=== PATIENT | female | born 1990 | race Caucasian/White ===

== ENCOUNTER 2019-03-16 13:50 | Observation (INO) | payer OTHER, SELFPAY ==
[2019-03-16 14:10] VITALS: BMI 29.8
[2019-03-16] MEDS: TERBUTALINE SULFATE 1 MG/ML VIAL 0.25 MG SUB-Q (14:26)
[2019-03-16 15:51] VITALS: PULSE 86; O2SAT 100
[2019-03-16 15:56] VITALS: PULSE 85; O2SAT 100
[2019-03-16 16:01] VITALS: PULSE 91; O2SAT 99
[2019-03-16 16:06] VITALS: PULSE 86; O2SAT 100
[2019-03-16 16:09] VITALS: PULSE 87; O2SAT 100
[2019-03-16 16:24] LABS: Add Urine Microscopic? YES; Amorphous Sediment Urine Few; Appearance Urine Cloudy (Clear); Bacteria Urine 4+ /hpf; Bilirubin Urine Negative (Negative); Blood Urine Negative (Negative); Color Urine Straw (Yellow); Glucose Urine UA Negative (Negative); Ketones Urine Negative (Negative); Leukocyte Esterase Ur Negative LEU/UL (Negative); Mucus Urine Rare /lpf; Nitrate Urine Negative (Negative); Protein Urine Negative (Negative); RBC Urine 0-2 /hpf (0-2); Specific Grav Ur 1.009 (1.001-1.035); Squamous Epithelial Cell Urine Occasional /hpf (Few); Urobilinogen Urine Negative mg/dL (<2.0); WBC Urine 0-3 /hpf
[2019-03-16 16:26] LABS: Fetal Fibronectin Negative
--- NOTE | 2019-03-16 16:32 | OBADM ---
This patient, Tawnya Reyes, admitted to the OB room OB Post 115 for observation. Patient/family oriented to hospital policies and general routines including ID bracelet, bed and alarms, visiting hours, pain management, procedures, bathroom and other care routines, personal items, smoking policy, room service/diet, and visiting hours. Patient/Family are encouraged to report perceived risks to care and to ask questions if they do not understand what they are told or what they should do.
[2019-03-16] MEDS: NITROFURANTOIN MONOHYD MACROCR 100 MG CAP PO (17:15)
--- NOTE | 2019-03-20 13:06 | PM.OBTRLD ---
OB - Triage/Final Diagnosis Visit Information Reason for evaluation: threatened labor Evaluation Laboratory results: Laboratory Tests 03/16/19 03/16/19 14:30 15:56 Urine Color Straw Urine Appearance Cloudy H Urine pH 7.0 Ur Specific [place] 1.009 Urine Protein Negative Urine Glucose (UA) Negative Urine Ketones Negative Ur Blood (Man) Negative Urine Nitrate Negative Urine Bilirubin Negative Urine Urobilinogen Negative Leukocyte Esterase Rfl Negative Urine RBC 0-2 Urine WBC 0-3 Ur Squamous Epith Cells Occasional Amorphous Sediment Few H Urine Bacteria 4+ H Urine Mucus Rare Fibronectin Negative
--- NOTE | 2019-03-21 06:44 | P.PNOB_ITS ---
OB - Triage/Final Diagnosis Visit Information Date of evaluation: 03/19/19 Reason for evaluation: decreased movement and threatened labor Evaluation Laboratory results: Laboratory Tests 03/16/19 03/16/19 14:30 15:56 Urine Color Straw Urine Appearance Cloudy H Urine pH 7.0 Ur Specific [place] 1.009 Urine Protein Negative Urine Glucose (UA) Negative Urine Ketones Negative Ur Blood (Man) Negative Urine Nitrate Negative Urine Bilirubin Negative Urine Urobilinogen Negative Leukocyte Esterase Rfl Negative Urine RBC 0-2 Urine WBC 0-3 Ur Squamous Epith Cells Occasional Amorphous Sediment Few H Urine Bacteria 4+ H Urine Mucus Rare Fibronectin Negative
== END 2019-03-16 17:20 | disposition home or self-care (01) ==
PROVIDERS: Admitting Provider Obstetrics & Gynecology; PCP Family Medicine; Visit Provider Obstetrics & Gynecology
DX: O47.02 False labor before 37 completed weeks of gestation, second trimester (principal); O36.8120 Decreased fetal movements, second trimester, not applicable or unspecified; Z3A.26 26 weeks gestation of pregnancy
CPT/HCPCS: 81001; 82731; 96372; A9270; G0378; G0379; J3105

== ENCOUNTER 2019-05-24 10:40 | Outpatient (CLI) | payer OTHER, SELFPAY ==
[2019-05-24 11:10] VITALS: BP 142/88; PULSE 103
[2019-05-24 11:15] VITALS: BP 137/94; PULSE 106
[2019-05-24 11:30] VITALS: BP 142/87; PULSE 102
[2019-05-24 11:58] LABS: Basophils Absolute Auto 0.1 K/mm3 (0.0-0.1); Basophils Percent Auto 0.5 % (0.2-1.2); Eosinophils Absolute Auto 0.4 K/mm3 (0-0.3); Eosinophils Percent Auto 2.4 % (0-4.4); Hematocrit 35.4 % (37.0-47.0); Hemoglobin 11.4 g/dL (12.0-15.0); Immature Granulocyte Absolute 0.17 K/mm3 (0.00-0.031); Immature Granulocyte Percent A 1.1 % (0-0.5); Lymphocytes Absolute Auto 2.61 K/mm3 (0.9-3.2); Lymphocytes Percent Auto 17.2 % (18.3-44.2); Mean Corpuscular HGB Conc 32.2 g/dl (32-36); Mean Corpuscular Hemoglobin 31.7 pg (26-34); Mean Corpuscular Volume 98.3 fl (80-100); Mean Platelet Volume 10.9 fl (7.4-10.4); Monocytes Absolute Auto 1.7 K/mm3 (0.1-0.6); Neutrophils Absolute Auto 10.3 K/mm3 (1.3-6.7); Neutrophils Percent Auto 67.8 % (45.5-73.1); Platelet Count Result 262 k/mm3 (150-375); Red Cell Distribution Width 14.2 % (11.5-14.5); White Blood Count 15.2 K/mm3 (4.5-10.0)
[2019-05-24 12:11] LABS: Alanine Aminotransferase 15 U/L (4-35); Albumin Level 3.4 g/dL (3.5-5.1); Alkaline Phosphatase 142 U/L (38-126); Aspartate Amino Transferase 30 U/L (14-36); Bilirubin,Total 0.2 mg/dL (0.2-1.3); Blood Urea Nitrogen 6 mg/dL (7-17); Calcium 8.2 mg/dL (8.4-10.2); Carbon Dioxide 25 mmol/L (22-30); Chloride 103 mmol/L (98-107); Estimated Glomerular Filt Rate > 60; Glucose 104 mg/dL (65-105); Potassium 3.9 mmol/L (3.4-5.0); Sodium 134 mmol/L (137-145); Uric Acid 3.6 mg/dL (2.5-7.5)
[2019-05-24 12:11] LABS: Add Urine Microscopic? YES; Appearance Urine Cloudy (Clear); Bacteria Urine 1+ /hpf; Bilirubin Urine Negative (Negative); Blood Urine Negative (Negative); Color Urine Yellow (Yellow); Glucose Urine UA Negative (Negative); Ketones Urine Negative (Negative); Leukocyte Esterase Ur Negative LEU/UL (NEGATIVE); Mucus Urine Rare /lpf; Nitrate Urine Negative (Negative); Protein Urine Negative (Negative); RBC Urine 0-2 /hpf (0-2); Squamous Epithelial Cell Urine Occasional /hpf (Few); Urobilinogen Urine Negative mg/dL (<2.0)
[2019-05-24 12:13] LABS: Creatinine Urine 32.3 mg/dL; Total Protein Urine Random 13 mg/dL
[2019-05-24 12:41] VITALS: BP 142/88; PULSE 113
[2019-05-24 13:38] VITALS: BP 142/88; PULSE 113
--- NOTE | 2019-05-24 13:41 | PC.NURSE ---
1124-Dr.Dalla Lee called informed pt came in for increased swelling in hands and feet, pt states she had right upper epigastric pain earlier and has had some headaches but has no complaints now. Orders receive for PIH workup
--- NOTE | 2019-05-24 13:43 | PC.NURSE ---
1229-Dr.Dalla Lee called read lab results and bp's, discharge orders received
--- NOTE | 2019-05-24 14:28 | PM.OBTRLD ---
OB - Triage/Final Diagnosis Visit Information Date of evaluation: 05/24/19 Reason for evaluation: other (htn) Evaluation Laboratory results: Laboratory Tests 05/24/19 05/24/19 05/24/19 11:43 11:43 11:48 WBC 15.2 H RBC 3.60 L Hgb 11.4 L Hct 35.4 L MCV 98.3 MCH 31.7 MCHC 32.2 RDW 14.2 Plt Count 262 MPV 10.9 H Immature Gran % (Auto) 1.1 H Neut % (Auto) 67.8 Lymph % (Auto) 17.2 L [place] % (Auto) 11.0 H Eos % (Auto) 2.4 Baso % (Auto) 0.5 Lymph # (Auto) 2.61 [place] # (Auto) 1.7 H Eos # (Auto) 0.4 H Baso # (Auto) 0.1 Abs Immat Gran (auto) 0.17 H Absolute Neuts (auto) 10.3 H Absolute Nucleated RBC 0.0 Nucleated RBC % 0.0 Sodium 134 L Potassium 3.9 Chloride 103 Carbon Dioxide 25 BUN 6 L Creatinine 0.40 L Estim Creat Clear Calc Not Reportable Estimated GFR > 60 Glucose 104 Uric Acid 3.6 Calcium 8.2 L Total Bilirubin 0.2 AST 30 ALT 15 Alkaline Phosphatase 142 H Total Protein 7.0 Albumin 3.4 L Urine Color Yellow Urine Appearance Cloudy H Urine pH 7.0 Ur Specific [place] 1.010 Urine Protein Negative Urine Glucose (UA) Negative Urine Ketones Negative Ur Blood (Man) Negative Urine Nitrate Negative Urine Bilirubin Negative Urine Urobilinogen Negative Ur Leukocyte Esterase Negative Urine RBC 0-2 Urine WBC 4-6 H Ur Squamous Epith Cells Occasional Urine Bacteria 1+ H Urine Mucus Rare U Random Total Protein Urine Creatinine 05/24/19 11:48 WBC RBC Hgb Hct MCV MCH MCHC RDW Plt Count MPV Immature Gran % (Auto) Neut % (Auto) Lymph % (Auto) [place] % (Auto) Eos % (Auto) Baso % (Auto) Lymph # (Auto) [place] # (Auto) Eos # (Auto) Baso # (Auto) Abs Immat Gran (auto) Absolute Neuts (auto) Absolute Nucleated RBC Nucleated RBC % Sodium Potassium Chloride Carbon Dioxide BUN Creatinine Estim Creat Clear Calc Estimated GFR Glucose Uric Acid Calcium Total Bilirubin AST ALT Alkaline Phosphatase Total Protein Albumin Urine Color Urine Appearance Urine pH Ur Specific [place] Urine Protein Urine Glucose (UA) Urine Ketones Ur Blood (Man) Urine Nitrate Urine Bilirubin Urine Urobilinogen Ur Leukocyte Esterase Urine RBC Urine WBC Ur Squamous Epith Cells Urine Bacteria Urine Mucus U Random Total Protein 13 Urine Creatinine 32.3 Vital signs: Vital Signs - 24 hr 05/24/19 11:10 05/24/19 11:15 05/24/19 11:30 Pulse Rate 103 H 106 H 102 H Blood Pressure 142/88 H 137/94 H 142/87 H Blood Pressure [Right Arm] 05/24/19 12:41 05/24/19 13:38 Pulse Rate 113 H 113 H Blood Pressure Blood Pressure [Right Arm] 142/88 H 142/88 H
== END 2019-05-24 12:50 | disposition home or self-care (01) ==
LOC: ANHOBPP 12:38 → ANHOBOP 05-25 06:53 → ANHOBPP 05-25 06:54
PROVIDERS: PCP Family Medicine; Visit Provider Obstetrics & Gynecology
DX: M79.89 Other specified soft tissue disorders (principal)
CPT/HCPCS: 36415; 59025; 80053; 81001; 82570; 84156; 84550; 85025; 87086; 87088; 99199

== ENCOUNTER 2019-05-29 12:02 | Outpatient (CLI) | payer OTHER, SELFPAY ==
[2019-05-29 12:33] VITALS: BP 130/96; PULSE 106
[2019-05-29 12:35] VITALS: BP 130/96; PULSE 114
[2019-05-29 12:45] VITALS: BP 134/96; PULSE 105
[2019-05-29 12:50] LABS: Basophils Absolute Auto 0.1 K/mm3 (0.0-0.1); Basophils Percent Auto 0.6 % (0.2-1.2); Eosinophils Absolute Auto 0.4 K/mm3 (0-0.3); Hematocrit 36.7 % (37.0-47.0); Hemoglobin 11.9 g/dL (12.0-15.0); Immature Granulocyte Absolute 0.11 K/mm3 (0.00-0.031); Immature Granulocyte Percent A 0.8 % (0-0.5); Lymphocytes Absolute Auto 2.99 K/mm3 (0.9-3.2); Lymphocytes Percent Auto 21.5 % (18.3-44.2); Mean Corpuscular HGB Conc 32.4 g/dl (32-36); Mean Corpuscular Hemoglobin 31.3 pg (26-34); Mean Corpuscular Volume 96.6 fl (80-100); Mean Platelet Volume 10.3 fl (7.4-10.4); Monocytes Absolute Auto 1.5 K/mm3 (0.1-0.6); Monocytes Percent Auto 10.5 % (2.6-8.5); Neutrophils Absolute Auto 8.8 K/mm3 (1.3-6.7); Neutrophils Percent Auto 63.6 % (45.5-73.1); Platelet Count Result 265 k/mm3 (150-375); Red Cell Distribution Width 13.7 % (11.5-14.5); White Blood Count 13.9 K/mm3 (4.5-10.0)
[2019-05-29 12:53] LABS: Add Urine Microscopic? NO; Appearance Urine Clear (Clear); Bilirubin Urine Negative (Negative); Blood Urine Negative (Negative); Color Urine Straw (Yellow); Glucose Urine UA Negative (Negative); Ketones Urine Negative (Negative); Leukocyte Esterase Ur Negative LEU/UL (Negative); Nitrate Urine Negative (Negative); Protein Urine Negative (Negative); Specific Grav Ur 1.005 (1.001-1.035); Urobilinogen Urine Negative mg/dL (<2.0)
[2019-05-29 13:00] VITALS: BP 133/85; PULSE 107
[2019-05-29 13:06] LABS: Alanine Aminotransferase 14 U/L (4-35); Albumin Level 3.6 g/dL (3.5-5.1); Alkaline Phosphatase 173 U/L (38-126); Aspartate Amino Transferase 31 U/L (14-36); Bilirubin,Total 0.3 mg/dL (0.2-1.3); Blood Urea Nitrogen 4 mg/dL (7-17); Calcium 8.8 mg/dL (8.4-10.2); Carbon Dioxide 25 mmol/L (22-30); Chloride 103 mmol/L (98-107); Estimated Glomerular Filt Rate > 60; Glucose 73 mg/dL (65-105); Sodium 134 mmol/L (137-145)
[2019-05-29 13:15] VITALS: BP 131/96; PULSE 105
[2019-05-29 13:20] LABS: Creatinine Urine 13.2 mg/dL; Total Protein Urine Random 14 mg/dL
[2019-05-29 13:22] VITALS: BP 131/96; PULSE 103
--- NOTE | 2019-05-29 13:25 | PM.OBTRLD ---
OB - Triage/Final Diagnosis Visit Information Date of evaluation: 05/29/19 Reason for evaluation: other (htn) Evaluation Laboratory results: Laboratory Tests 05/29/19 05/29/19 05/29/19 12:40 12:41 12:41 WBC 13.9 H RBC 3.80 L Hgb 11.9 L Hct 36.7 L MCV 96.6 MCH 31.3 MCHC 32.4 RDW 13.7 Plt Count 265 MPV 10.3 Immature Gran % (Auto) 0.8 H Neut % (Auto) 63.6 Lymph % (Auto) 21.5 [place] % (Auto) 10.5 H Eos % (Auto) 3.0 Baso % (Auto) 0.6 Lymph # (Auto) 2.99 [place] # (Auto) 1.5 H Eos # (Auto) 0.4 H Baso # (Auto) 0.1 Abs Immat Gran (auto) 0.11 H Absolute Neuts (auto) 8.8 H Absolute Nucleated RBC 0.0 Nucleated RBC % 0.0 Sodium 134 L Potassium 4.0 Chloride 103 Carbon Dioxide 25 BUN 4 L Creatinine 0.40 L Estim Creat Clear Calc Not Reportable Estimated GFR > 60 Glucose 73 Uric Acid 4.0 Calcium 8.8 Total Bilirubin 0.3 AST 31 ALT 14 Alkaline Phosphatase 173 H Total Protein 7.0 Albumin 3.6 Urine Color Urine Appearance Urine pH Ur Specific [place] Urine Protein Urine Glucose (UA) Urine Ketones Ur Blood (Man) Urine Nitrate Urine Bilirubin Urine Urobilinogen Leukocyte Esterase Rfl U Random Total Protein 14 Urine Creatinine 13.2 05/29/19 12:41 WBC RBC Hgb Hct MCV MCH MCHC RDW Plt Count MPV Immature Gran % (Auto) Neut % (Auto) Lymph % (Auto) [place] % (Auto) Eos % (Auto) Baso % (Auto) Lymph # (Auto) [place] # (Auto) Eos # (Auto) Baso # (Auto) Abs Immat Gran (auto) Absolute Neuts (auto) Absolute Nucleated RBC Nucleated RBC % Sodium Potassium Chloride Carbon Dioxide BUN Creatinine Estim Creat Clear Calc Estimated GFR Glucose Uric Acid Calcium Total Bilirubin AST ALT Alkaline Phosphatase Total Protein Albumin Urine Color Straw Urine Appearance Clear Urine pH 7.0 Ur Specific [place] 1.005 Urine Protein Negative Urine Glucose (UA) Negative Urine Ketones Negative Ur Blood (Man) Negative Urine Nitrate Negative Urine Bilirubin Negative Urine Urobilinogen Negative Leukocyte Esterase Rfl Negative U Random Total Protein Urine Creatinine Vital signs: Vital Signs - 24 hr 05/29/19 12:33 05/29/19 12:35 05/29/19 12:45 Pulse Rate 106 H 114 H 105 H Blood Pressure 130/96 H 134/96 H Blood Pressure [Right Arm] 130/96 H 05/29/19 13:00 05/29/19 13:15 Pulse Rate 107 H 105 H Blood Pressure 133/85 131/96 H Blood Pressure [Right Arm]
[2019-05-30 07:43] LABS: Rapid Plasma Reagin Non-Reactive (NonReactive)
== END 2019-05-29 13:30 | disposition home or self-care (01) ==
LOC: ANHOBOP 12:07 → ANHOBPP 12:08
PROVIDERS: Family Provider Obstetrics & Gynecology; PCP Family Medicine; Visit Provider Obstetrics & Gynecology
DX: O13.9 Gestational [pregnancy-induced] hypertension without significant proteinuria, unspecified trimester (principal)
CPT/HCPCS: 36415; 59025; 80053; 81003; 82570; 84156; 84550; 85025; 86592; 86850; 86900; 86901; 99199

== ENCOUNTER 2019-05-30 05:24 | Inpatient (IN) | payer OTHER, SELFPAY ==
[2019-05-30] VITALS (80 sets, daily range): BP systolic 101–140; BP diastolic 64–98; PULSE 25–113; RESP 12–18; TEMP 36.4–37.1; O2SAT 94–100; BMI 34.9
[2019-05-30] MEDS: LACTATED RINGERS 1,000 ML 999 ML IV CONT (06:19)
--- NOTE | 2019-05-30 06:35 | WPDHPUPDATE1 ---
History and Physical Update Update Date/Time: 05/30/19 06:35 History and Physical has been reviewed, including an updated exam of the patient. There are NO changes in the patient's condition. Risks, benefits, and alternatives have been discussed and questions answered. Patient agrees to proceed with procedure.
--- NOTE | 2019-05-30 06:37 | WPDANESEPPF ---
Anes - Initial Pre Proc Eval Procedure: Operation Date: 05/30/19 07:30 Proposed Procedures p Repeat Section - Melvin Starr MD Date/Time: 05/30/19 06:37 Surgeon: Melvin Starr MD Pre Op Diagnosis: Previous C- Section Patient Data Age: 29 Gender: F Height: 4 ft 11 in Weight: 78.5 kg Last Vital Signs Pulse 113 H 05/30/19 06:31 BP 140/98 H 05/30/19 06:31 Pulse Ox 96 05/30/19 06:18 Allergies Allergy/AdvReac Type Severity Reaction Status Date / Time latex Allergy Mild Verified 04/13/17 15:25 citalopram Allergy Unknown Verified 12/17/14 14:26 Penicillins Allergy Unknown Verified 12/17/14 14:26 vancomycin Allergy Unknown Verified 03/30/18 13:23 Home Medications Medication Instructions Recorded Confirmed Type PNV cmb#95-ferrous fumarate-FA 1 tablet PO DAILY 05/29/19 05/29/19 History [] aspirin 81 mg PO DAILY 05/29/19 05/29/19 History cetirizine [Zyrtec] 10 mg PO DAILY PRN 05/29/19 05/29/19 History ferrous sulfate 325 mg PO DAILY 05/29/19 05/29/19 History hydrocodone-acetaminophen [[place]] 1 tablet PO Q4H PRN #30 tablet 05/30/19 Rx Patient hx anesthesia problems: none Family hx anesthesia problems: none PMFSH Past Medical History Medical History (Updated 05/30/19 @ 06:37 by Melvin Stovall MD) Preeclampsia Surgical History Surgical History (Updated 05/30/19 @ 06:37 by Melvin Stovall MD) History of section Hx of tonsillectomy Family History Family History Father Hypertension Family history of heart disease in male family member before age 55 Grandparent Family history of lung cancer Family history of type 1 diabetes mellitus Social History Social History Smoking status: Never smoker Alcohol intake: current Anes - Eval Final PreProcedure Day of Procedure 05/30/19 06:37 Patient weight: obese Heart: regular rate and rhythm Lungs: clear to auscultation Airway: Mallampati scale class II Neurological: alert and oriented Last oral intake: >/= 8 hours ASA classification: III Emergent: no Anesthetic plan: proceed Anesthesia type and monitoring: regional spinal and standard monitoring Informed Consent: The patient's anesthetic plan and its attendant risks and benefits were discussed with the patient/family/POA. Questions were solicited and answers provided to the satisfaction of the patient/family/POA.
--- NOTE | 2019-05-30 07:00 | LDADM ---
This patient, Tawnya Reyes, was admitted to Labor/Delivery/Recovery 120 on 05/30/19 at 05:24. Plans for labor, pain management and were discussed with patient. Patient/family oriented to hospital policies and general routines including ID bracelet, bed and alarms, visiting hours, pain management, procedures, bathroom and other care routines, personal items, smoking policy, room service/diet and guest tray routines, security routines, and visiting hours. Patient/Family are encouraged to report perceived risks to care and to ask questions if they do not understand what they are told or what they should do. See OBIX for further documentation.
[2019-05-30] MEDS: LACTATED RINGERS 1,000 ML 125 ML IV CONT (07:03)
[2019-05-30] MEDS: CLINDAMYCIN 900 MG/NS 50 ML 900 MG/50 ML PIGGYBACK 50 MG IVPB (07:20)
--- NOTE | 2019-05-30 07:58 | PM.PROC ---
Procedure Note - Detailed Date of procedure: 05/30/19 Pre-op diagnosis: Previous C- Section Surgeon: Melvin Starr MD Postop diagnosis: Previous section, 37 and half weeks , gestational hypertension Procedure: Repeat low-transverse section Anesthesia: Spinal EBL,: 310cc Findings: Female 7 lb 9 oz, Apgars 8 and 9 at 1 and 5 minutes respectively Complications: None Description of procedure: The patient was prepped and draped in the normal sterile fashion and placed in the supine position. Under excellent spinal anesthetic the abdomen was entered through the previous Pfannenstiel incision and progressive layers to the fascia. Fascia was incised and upward outward fashion bilaterally. Underlying muscles sharp dissected. Parietal peritoneum will likely clamped and by sharp dissection carried superiorly and inferiorly to the dome of the bladder. Bladder blade was placed and a bladder blade returned low-transverse incision made and the head delivered in the STANLEY position. Anterior posterior shoulder delivered spontaneously. Cord clamped x2 and cut and passed off the table. Apgars were given of 8 and 9 at 1 and 5 minutes respectively. Placenta delivered intact manually. Uterus delivered on the abdomen wrapped in a moist towel. After assuring no membranes or debris remained in the uterus the uterus was closed with continuous running locking 0 Vicryl from lateral edge to lateral edge. This was followed by 2nd imbricating running 0 Vicryl from lateral edge lateral edge. Hemostasis was assured and blood loss was estimated. Ovaries and tubes inferior appeared within normal limits. The uterine incision was hemostatic. A small calcified fibroid about a cm in size was seen at the fundus. The uterus returned the abdomen. The laps removed and accounted for. The uterine incision inspected 1 last time noted be hemostatic. The fascia was closed with continuous running 0 Vicryl from lateral edge to midline bilaterally. Irrigation the subcutaneous layer and the skin closed with 4 O Monocryl and glue. Patient tolerated the procedure well. All sponge, needle, instrument counts were correct. There were no immediate complications. Mom and baby were doing fine at the time of this dictation
[2019-05-30] MEDS: OXYTOCIN 30 UNITS/NS 500 ML 30 UNITS/500 ML BAG 125 UNITS IV CONT (10:28)
--- NOTE | 2019-05-30 10:35 | PC.NURSE ---
PT arrived on unit via stretcher accompanied by spouse and to room 280. PT introductions made and plan of care discussed per post op c section, pain management, breast feeding, daily care activities. PT oriented to room 280 and surrounding area. Welcome packet reviewed and discussed. PT verbalized understanding of such care.
[2019-05-30] MEDS: KETOROLAC 30 MG/ML VIAL (*BKC) IV PUSH ×2 (11:18→17:58)
[2019-05-30] MEDS: LANOLIN (LANSINOH) 7.5 GM CREAM 1 APPLIC TOPICAL (11:20)
[2019-05-30] MEDS: SIMETHICONE 80 MG TAB.CHEW PO ×3 (11:20→17:56)
--- NOTE | 2019-05-30 14:00 | PC.NURSE ---
Upon entering mother has latched to breast, has a slightly shallow latch. Mother reports infant is fussy and has some nipple tenderness. Discussed how a deep latch may assist with less tenderness and may increase intake. Mother reports she does not like to use the cross cradle and the cradle is more comfortable to her. Reviewed positioning/alignment, holding breast and asymmetrical latch on. Discussed rational for each. nursed eagerly, with steady draws and occasional swallowing noted. Reviewed signs of a correct latch, effective nursing and suck swallow ratio. Nipple care reviewed. Reviewed feeding cues, frequencies, duration of feedings, feeding elimination flow sheet, and signs of adequate intake. Demonstrated stimulation techniques to wake for feeding.Instructed mother to call out for RN assistance if she is unable to latch infant for feeding or she has discomfort with nursing. Instructed feeding should be initiated three hours from start of last feeding or if feeding cues are noted before. Mother voiced understanding of information shared.
[2019-05-30] MEDS: DEXTROSE 5%/0.45% SOD CHL 1,000 ML 125 ML IV CONT (14:56)
[2019-05-30] MEDS: NALBUPHINE HCL 10 MG/ML AMPUL 2 MG IV PUSH ×2 (15:27→19:49)
[2019-05-30] MEDS: DOCUSATE SODIUM 100 MG CAPSULE PO (17:56)
[2019-05-31] MEDS: IBUPROFEN 600 MG TABLET PO ×3 (01:18→16:24)
[2019-05-31] MEDS: SIMETHICONE 80 MG TAB.CHEW PO ×5 (01:26→20:26)
[2019-05-31] MEDS: NALBUPHINE HCL 10 MG/ML AMPUL 2 MG IV PUSH ×2 (01:29→05:20)
[2019-05-31 03:05] VITALS: BP 122/79; PULSE 86; RESP 16; TEMP 37
[2019-05-31 05:20] LABS: Basophils Absolute Auto 0.1 K/mm3 (0.0-0.1); Basophils Percent Auto 0.6 % (0.2-1.2); Eosinophils Absolute Auto 0.8 K/mm3 (0-0.3); Eosinophils Percent Auto 5.2 % (0-4.4); Hematocrit 34.2 % (37.0-47.0); Hemoglobin 11.1 g/dL (12.0-15.0); Immature Granulocyte Absolute 0.09 K/mm3 (0.00-0.031); Immature Granulocyte Percent A 0.6 % (0-0.5); Lymphocytes Absolute Auto 2.88 K/mm3 (0.9-3.2); Lymphocytes Percent Auto 19.1 % (18.3-44.2); Mean Corpuscular HGB Conc 32.5 g/dl (32-36); Mean Corpuscular Hemoglobin 31.5 pg (26-34); Mean Corpuscular Volume 97.2 fl (80-100); Mean Platelet Volume 10.6 fl (7.4-10.4); Monocytes Absolute Auto 1.6 K/mm3 (0.1-0.6); Monocytes Percent Auto 10.8 % (2.6-8.5); Neutrophils Absolute Auto 9.6 K/mm3 (1.3-6.7); Neutrophils Percent Auto 63.7 % (45.5-73.1); Platelet Count Result 262 k/mm3 (150-375); Red Blood Count 3.52 M/mm3 (4.2-5.4); Red Cell Distribution Width 13.9 % (11.5-14.5); White Blood Count 15.1 K/mm3 (4.5-10.0)
--- NOTE | 2019-05-31 06:43 | PM.OBPNVD ---
OB - PN: Subj Subjective Date/time seen: 05/31/19 06:43 Patient comments: no complaints and pain well controlled baby status: doing well and nursing well OB - PN: Obj Data Labs CBC & Chem 7: 05/31/19 04:22 Labs: Laboratory Results - last 24 hr 05/31/19 04:22 WBC 15.1 H RBC 3.52 L Hgb 11.1 L Hct 34.2 L MCV 97.2 MCH 31.5 MCHC 32.5 RDW 13.9 Plt Count 262 MPV 10.6 H Immature Gran % (Auto) 0.6 H Neut % (Auto) 63.7 Lymph % (Auto) 19.1 [place] % (Auto) 10.8 H Eos % (Auto) 5.2 H Baso % (Auto) 0.6 Lymph # (Auto) 2.88 [place] # (Auto) 1.6 H Eos # (Auto) 0.8 H Baso # (Auto) 0.1 Abs Immat Gran (auto) 0.09 H Absolute Neuts (auto) 9.6 H Absolute Nucleated RBC 0.0 Nucleated RBC % 0.0 OB - PN A/P Plan day: 1 Plan: routine care Time Spent With Patient Time: Total time spent is greater than 50% in coordination of care (as documented) at patient's floor/unit and/or counseling patient: Time with patient: less than 15 minutes Review of Systems Review of Systems: All systems reviewed & are unremarkable except as noted in HPI and below Exam Const: General: no acute distress Eyes: General: appearance normal, both eyes and all related structures Neck: Neck: supple and no JVD Thyroid: thyroid normal Resp: Effort & Inspection: normal respiratory effort Auscultation: clear to auscultation bilaterally Cardio: Rate: regular rate Rhythm: regular rhythm GI: Inspection: normal to inspection and incision (cdi/fundus firm) : General: Yes other (flow light) Skin: General skin exam: no rashes or lesions noted Extrem: General: normal to inspection and no edema Psych: Mental Status: mental status grossly normal Affect: normal affect
[2019-05-31 07:35] VITALS: BP 110/74; PULSE 70; RESP 18; TEMP 37.6; O2SAT 99
--- NOTE | 2019-05-31 09:11 | WPDANLDPN2 ---
Anes-Prog Note L&D Date/Time: 05/31/19 09:11 Comfortable throughout: section Neuraxial method: spinal Epidural/Spinal procedure site: clean & non-tender Neuro status: Neuro function grossly intact. Cardiovascular status: normal Respiratory status: normal Airway patency: baseline Mental status: baseline Post-Op hydration status: normal Vital Signs: Last Vital Signs Temp 37.0 C 05/31/19 03:05 Pulse 86 05/31/19 03:05 Resp 16 05/31/19 03:05 BP 122/79 05/31/19 03:05 Pulse Ox 100 05/30/19 15:14 I/O: Intake & Output 05/30/19 05/31/19 05/31/19 23:59 07:59 15:59 Intake Total 1664 1000 Output Total 2100 1999 Balance -436 -1000 Post-procedural complaints: none Patient feedback: Patient satisfied with anesthetic care.
--- NOTE | 2019-05-31 09:12 | WPDANLDNPN2 ---
Anes-Prog Note L&D-Neuraxial Date/Time: 05/31/19 09:12 Neuraxial medications: intrathecal PF morphine Opiod-related complaints: none Patient feedback: Patient satisfied with post-operative pain management.
[2019-05-31] MEDS: DOCUSATE SODIUM 100 MG CAPSULE PO ×2 (10:12→16:24)
[2019-05-31] MEDS: MULTIVIT/MIN/PREN/FOL AC/IRON TABLET 1 TAB PO (10:12)
[2019-05-31] MEDS: FLUTICASONE PROPIONATE 0.05% NA SPR 16 GM BTL (*BKC) 1 SPRAY NASAL ×2 (10:13→20:27)
--- NOTE | 2019-05-31 12:40 | PC.NURSE ---
Mother reports she continues with tenderness with latching and reports infant is fussy between feedings and having long feedings. Mother has supplemented a few times due to infant fussiness. Mother states she feels her breasts are firmer to day and feels her milk may be transitioning. Discussed the importance of a deep latch for mother's comfort and increased intake. Mother has at breast in a cradle position with a shallow latched. Suggested mother hold breast and adjust latch more deeply. Mother states infant does not like that position and will release latch freq. and is comfortable as is. Mother is is feeding as required and waking to feed if needed. is currently meeting outcomes for weight, output, jaundice and feeding frequencies.
--- NOTE | 2019-05-31 15:00 | PC.NURSE ---
PT introductions made and plan of care discussed per post op c section, pain management, breast feeding, daily care activities. PT verbalized understanding of such care.
[2019-05-31 20:30] VITALS: BP 126/84; PULSE 69; RESP 16; TEMP 36.7
[2019-06-01] MEDS: IBUPROFEN 600 MG TABLET PO ×4 (00:52→22:46)
[2019-06-01] MEDS: SIMETHICONE 80 MG TAB.CHEW PO ×2 (00:52→05:00)
[2019-06-01] MEDS: DOCUSATE SODIUM 100 MG CAPSULE PO ×2 (08:17→16:04)
[2019-06-01] MEDS: MULTIVIT/MIN/PREN/FOL AC/IRON TABLET 1 TAB PO (08:17)
[2019-06-01] MEDS: FLUTICASONE PROPIONATE 0.05% NA SPR 16 GM BTL (*BKC) 1 SPRAY NASAL ×2 (08:18→21:24)
[2019-06-01 09:12] VITALS: BP 139/90; PULSE 85; RESP 18; TEMP 37.4; O2SAT 98
[2019-06-01 14:30] VITALS: BP 133/89
[2019-06-01 21:25] VITALS: BP 125/74; PULSE 79; RESP 16; TEMP 37.1
[2019-06-02] MEDS: IBUPROFEN 600 MG TABLET PO ×2 (05:10→11:17)
--- NOTE | 2019-06-02 07:32 | P.DS_ITS ---
DS: Diagnosis Admitting Diagnosis Admitting Diagnosis: term/htn DS: Summary Time Spent with Patient Time attestation: Total time spent providing and/or coordinating discharge services: Exam Const: General: no acute distress Eyes: General: appearance normal, both eyes and all related structures Neck: Neck: supple and no JVD Thyroid: thyroid normal Resp: Effort & Inspection: normal respiratory effort Auscultation: clear to auscultation bilaterally Cardio: Rate: regular rate Rhythm: regular rhythm GI: Inspection: non-distended GI Palp: Yes Soft to palpation, No Tenderness to palpation present (GI) and No Guarding due to palpation present (GI) Auscultation: normal bowel sounds : General: Yes bladder normal to palpation External Female Exam: normal external appearance Speculum Exam - Vagina: normal vaginal discharge and No vaginal bleeding Speculum Exam - Cervix: nontender Bimanual exam- vagina & uterus: bladder normal to palpation and No Cervical tenderness present OB/ext ernal & speculum: No vaginal bleeding Skin: General skin exam: no rashes or lesions noted Extrem: General: normal to inspection and no edema Psych: Mental Status: mental status grossly normal Affect: normal affect Discharge Plan Discharge Attending physician on discharge: Melvin Starr Discharging Clinician: Melvin Starr Patient Disposition: Home, Self-Care Activity: may shower, no straining, may drive after 2 weeks and pelvic rest Diet: heart healthy Wound Care Instructions: follow printed instructions and incision open to air Patient Instructions: Antibiotic Form Stand Alone Forms: General Discharge Information Follow-up/Referrals: Melvin Starr MD [Physician] - Discharge Medications: New hydrocodone-acetaminophen [[place]] 5-325 mg tablet 1 tablet PO Q4H PRN (Reason: pain) Qty: 30 RF: 0 Continued cetirizine [Zyrtec] 10 mg Tablet 10 mg PO DAILY PRN (Reason: Allergy Symptoms) RF: 0 ferrous sulfate 325 mg (65 mg iron) Tablet 325 mg PO DAILY RF: 0 aspirin 81 mg Tablet,Chewable 81 mg PO DAILY RF: 0 PNV cmb#95-ferrous fumarate-FA [] 28 mg iron- 800 mcg Tablet 1 tablet PO DAILY RF: 0 acetaminophen [Tylenol Extra Strength] 500 mg Tablet 1,000 mg PO Q6H PRN (Reason: Headache) RF: 0 Date of admission: 05/30/19 05:24 Primary Care Provider: Tami Higgins Admitting Provider: Melvin Starr Attending physician on admission: Melvin Starr
--- NOTE | 2019-06-02 07:32 | PM.OBPNVD ---
OB - PN: Subj Subjective Date/time seen: 06/02/19 07:32 Patient comments: no complaints and pain well controlled baby status: doing well and nursing well OB - PN: Obj Data Labs CBC & Chem 7: 05/31/19 04:22 OB - PN A/P Plan day: 2 Plan: routine care, discharge home and follow up 6 weeks (4 weeks) Time Spent With Patient Time: Total time spent is greater than 50% in coordination of care (as documented) at patient's floor/unit and/or counseling patient: Time with patient: less than 15 minutes Review of Systems Review of Systems: All systems reviewed & are unremarkable except as noted in HPI and below Exam Const: General: no acute distress Eyes: General: appearance normal, both eyes and all related structures Neck: Neck: supple and no JVD Thyroid: thyroid normal Resp: Effort & Inspection: normal respiratory effort Auscultation: clear to auscultation bilaterally Cardio: Rate: regular rate Rhythm: regular rhythm GI: Inspection: incision (cdi/fundus firm) : External Female Exam: normal external appearance (flow light) Skin: General skin exam: no rashes or lesions noted Extrem: General: normal to inspection and no edema Psych: Mental Status: mental status grossly normal Affect: normal affect
[2019-06-02 07:43] VITALS: BP 148/95; PULSE 92; RESP 16; TEMP 37.1
[2019-06-02] MEDS: DOCUSATE SODIUM 100 MG CAPSULE PO (09:37)
[2019-06-02] MEDS: FLUTICASONE PROPIONATE 0.05% NA SPR 16 GM BTL (*BKC) 1 SPRAY NASAL (09:37)
[2019-06-02] MEDS: MULTIVIT/MIN/PREN/FOL AC/IRON TABLET 1 TAB PO (09:37)
[2019-06-02 09:39] VITALS: BP 138/85; PULSE 85
[2019-06-04 08:55] VITALS: BP 154/100; PULSE 90; RESP 20; TEMP 37.3; O2SAT 100
--- NOTE | 2019-06-06 07:03 | PM.IMHP ---
H&P: HPI History of Present Illness Chief complaint: Previous C- Section Narrative: Tawnya Reyes is a 29 year old female who was admitted for repeat section. She worsening blood pressures and is near term. The had been uncomplicated prior to this. She had a history of high blood pressure and a section and declined Review of Systems Review of Systems: All systems reviewed & are unremarkable except as noted in HPI and below PMFSH Past Medical History Medical History Preeclampsia Surgical History Surgical History History of section Hx of tonsillectomy Family History Family History Father Family history of heart disease in male family member before age 55 Hypertension Grandparent Family history of lung cancer Family history of type 1 diabetes mellitus Mother Hypertension Social History Social History Smoking status: Never smoker Alcohol intake: current Substance use: never Spiritual care concerns: No Meds Home Medications and Allergies Home Medications Medication Instructions Recorded Confirmed Type PNV cmb#95-ferrous fumarate-FA 1 tablet PO DAILY 05/29/19 05/30/19 History [] aspirin 81 mg PO DAILY 05/29/19 05/30/19 History cetirizine [Zyrtec] 10 mg PO DAILY PRN 05/29/19 05/30/19 History ferrous sulfate 325 mg PO DAILY 05/29/19 05/30/19 History acetaminophen [Tylenol Extra 1,000 mg PO Q6H PRN 05/30/19 05/30/19 History Strength] hydrocodone-acetaminophen [[place]] 1 tablet PO Q4H PRN #30 tablet 05/30/19 Rx labetalol 200 mg PO Q12H #60 tablet 06/04/19 Rx Allergies Allergy/AdvReac Type Severity Reaction Status Date / Time latex Allergy Mild Verified 04/13/17 15:25 citalopram Allergy Unknown Verified 12/17/14 14:26 Penicillins Allergy Unknown Verified 12/17/14 14:26 vancomycin Allergy Unknown Verified 03/30/18 13:23 Exam Const: General: no acute distress Eyes: General: appearance normal, both eyes and all related structures Neck: Neck: supple and no JVD Thyroid: thyroid normal Resp: Effort & Inspection: normal respiratory effort Auscultation: clear to auscultation bilaterally Cardio: Rate: regular rate Rhythm: regular rhythm GI: Inspection: normal to inspection (Gravid soft uterus. heart tones are reassuring) : General: Yes bladder normal to palpation External Female Exam: normal external appearance Speculum Exam - Vagina: normal vaginal discharge and No vaginal bleeding Speculum Exam - Cervix: nontender Bimanual exam- vagina & uterus: bladder normal to palpation and No Cervical tenderness present OB/external & speculum: No vaginal bleeding Skin: General skin exam: no rashes or lesions noted Extrem: General: normal to inspection and no edema Psych: Mental Status: mental status grossly normal Affect: normal affect Assessment and Plan Additional Plan Impression: Term . Previous section. Elevated blood pressures consistent with gestational hypertension Plan: Repeat low-transverse section. PIH labs were drawn and a
== END 2019-06-02 11:48 | disposition home or self-care (01) | DRG 788 ==
LOC: ANHLDR 05:25 → ANHOB2 10:39
PROVIDERS: Admitting Provider Obstetrics & Gynecology; PCP Family Medicine; Visit Provider Obstetrics & Gynecology
PROC: 10D00Z1 Extraction of Products of Conception, Low, Open Approach (ICD-10-PCS; CPT 59514; principal; 2019-05-30 07:30)
DX: O34.211 Maternal care for low transverse scar from previous cesarean delivery (principal); Z3A.37 37 weeks gestation of pregnancy; Z37.0 Single live birth; O99.214 Obesity complicating childbirth; E66.9 Obesity, unspecified; O13.4 Gestational [pregnancy-induced] hypertension without significant proteinuria, complicating childbirth
CPT/HCPCS: 36415; 85025; A9270; J0131; J1200; J1580; J1885; J2274; J2300; J2405; J2590; J2704; J3010; J7120

== ENCOUNTER 2019-06-04 09:41 | Outpatient (CLI) | payer OTHER, SELFPAY ==
[2019-06-04] VITALS (7 sets, daily range): BP systolic 126–148; BP diastolic 78–96; PULSE 68–81
[2019-06-04 10:35] LABS: Basophils Absolute Auto 0.1 K/mm3 (0.0-0.1); Basophils Percent Auto 0.8 % (0.2-1.2); Eosinophils Absolute Auto 0.6 K/mm3 (0-0.3); Eosinophils Percent Auto 6.9 % (0-4.4); Hematocrit 36.8 % (37.0-47.0); Hemoglobin 11.7 g/dL (12.0-15.0); Immature Granulocyte Absolute 0.02 K/mm3 (0.00-0.031); Immature Granulocyte Percent A 0.2 % (0-0.5); Lymphocytes Absolute Auto 2.16 K/mm3 (0.9-3.2); Lymphocytes Percent Auto 23.7 % (18.3-44.2); Mean Corpuscular HGB Conc 31.8 g/dl (32-36); Mean Corpuscular Hemoglobin 30.9 pg (26-34); Mean Corpuscular Volume 97.1 fl (80-100); Mean Platelet Volume 9.3 fl (7.4-10.4); Monocytes Absolute Auto 0.9 K/mm3 (0.1-0.6); Monocytes Percent Auto 9.4 % (2.6-8.5); Neutrophils Absolute Auto 5.4 K/mm3 (1.3-6.7); Platelet Count Result 344 k/mm3 (150-375); Red Blood Count 3.79 M/mm3 (4.2-5.4); Red Cell Distribution Width 13.6 % (11.5-14.5); White Blood Count 9.1 K/mm3 (4.5-10.0)
[2019-06-04] MEDS: LABETALOL HCL 100 MG TABLET 200 MG PO (10:39)
[2019-06-04 10:47] LABS: Alanine Aminotransferase 38 U/L (4-35); Albumin Level 3.6 g/dL (3.5-5.1); Alkaline Phosphatase 126 U/L (38-126); Aspartate Amino Transferase 45 U/L (14-36); Bilirubin,Total 0.5 mg/dL (0.2-1.3); Blood Urea Nitrogen 10 mg/dL (7-17); Calcium 8.7 mg/dL (8.4-10.2); Carbon Dioxide 28 mmol/L (22-30); Chloride 105 mmol/L (98-107); Estimated Glomerular Filt Rate > 60; Glucose 79 mg/dL (65-105); Potassium 3.8 mmol/L (3.4-5.0); Sodium 137 mmol/L (137-145); Uric Acid 5.1 mg/dL (2.5-7.5)
--- NOTE | 2019-06-04 10:56 | PM.OBTRLD ---
OB - Triage/Final Diagnosis Visit Information Date of evaluation: 06/04/19 Reason for evaluation: other ( htn) Evaluation Laboratory results: Laboratory Tests 06/04/19 06/04/19 10:29 10:29 WBC 9.1 RBC 3.79 L Hgb 11.7 L Hct 36.8 L MCV 97.1 MCH 30.9 MCHC 31.8 L RDW 13.6 Plt Count 344 MPV 9.3 Immature Gran % (Auto) 0.2 Neut % (Auto) 59.0 Lymph % (Auto) 23.7 [place] % (Auto) 9.4 H Eos % (Auto) 6.9 H Baso % (Auto) 0.8 Lymph # (Auto) 2.16 [place] # (Auto) 0.9 H Eos # (Auto) 0.6 H Baso # (Auto) 0.1 Abs Immat Gran (auto) 0.02 Absolute Neuts (auto) 5.4 Absolute Nucleated RBC 0.0 Nucleated RBC % 0.0 Sodium 137 Potassium 3.8 Chloride 105 Carbon Dioxide 28 BUN 10 D Creatinine 0.50 L Estim Creat Clear Calc Not Reportable Estimated GFR > 60 Glucose 79 Uric Acid 5.1 Calcium 8.7 Total Bilirubin 0.5 AST 45 H ALT 38 H Alkaline Phosphatase 126 Total Protein 7.0 Albumin 3.6 Vital signs: Vital Signs - 24 hr 06/04/19 10:14 06/04/19 10:15 06/04/19 10:30 Pulse Rate 73 77 78 Blood Pressure 147/96 H 137/91 H 148/92 H 06/04/19 10:45 Pulse Rate 73 Blood Pressure 136/93 H
--- NOTE | 2019-06-04 11:35 | PC.NURSE ---
Dr Valderrama informed of BP's and labs. Rx to be called in, ok to dc home and follow up in 1 week.
== END 2019-06-04 11:45 | disposition home or self-care (01) ==
LOC: ANHOBOP 10:05 → ANHOBPP 10:06
PROVIDERS: PCP Family Medicine; Visit Provider Obstetrics & Gynecology
DX: O13.9 Gestational [pregnancy-induced] hypertension without significant proteinuria, unspecified trimester (principal)
CPT/HCPCS: 36415; 80053; 84550; 85025; 99199; A9270

== ENCOUNTER 2021-05-30 17:18 | Emergency (ER) | payer OTHER, SELFPAY ==
[2021-05-30 17:27] VITALS: BP 143/99; PULSE 93; RESP 14; TEMP 37.1; O2SAT 100
[2021-05-30 17:42] VITALS: BP 143/99; PULSE 93; RESP 14; TEMP 37.1; O2SAT 100
--- NOTE | 2021-05-30 17:49 | ED.URI ---
HPI - URI/Sore Throat General Chief Complaint: Upper Respiratory Infection Stated Complaint: Fever/Sore Throat Time Seen by Provider: 05/30/21 17:49 Source: patient Mode of arrival: ambulatory Limitations: no limitations History of Present Illness HPI Narrative: 31-year-old female with complaint of sore throat, nasal congestion, postnasal drainage, ear pressure, chills and body aches for 3 days. Was seen by PCP 2 days ago and had negative strep and COVID test. Was told that she would be called if strep culture was positive but has not heard result. States she woke up today and feeling much worse, sore throat is severe. Is taking ibuprofen and Tylenol to treat her pain. States temp has been as high as 101 Fahrenheit. Denies nausea vomiting diarrhea. All systems reviewed and negative except as noted above. Related Data Home Medications Medication Instructions Recorded Confirmed cetirizine [Zyrtec] 10 mg PO DAILY PRN 05/29/19 05/30/21 buspirone 5 mg PO BID 05/30/21 05/30/21 clonidine HCl 0.1 mg PO HS 05/30/21 05/30/21 Allergies Allergy/AdvReac Type Severity Reaction Status Date / Time latex Allergy Mild Rash Verified 05/30/21 17:40 citalopram Allergy Unknown Rash Verified 05/30/21 17:40 Penicillins Allergy Unknown Rash Verified 05/30/21 17:40 vancomycin Allergy Unknown Redness of Verified 05/30/21 17:40 Skin Review of Systems Review of Systems: CONSTITUTIONAL: Reports fever, chills, or sweats. EYES: Denies visual changes, redness, or discharge. ENT: Reports rhinorrhea, congestion, sore throat, ear pain. CARDIOVASCULAR: Denies chest pain, palpitations, or edema. RESPIRATORY: Denies cough or dyspnea. GASTROINTESTINAL: Denies abdominal pain, nausea, vomiting, or diarrhea. GENITOURINARY: Denies dysuria or hematuria. SKIN: Denies rash or itching. MUSCULOSKELETAL: Denies back pain, joint pain. Reports myalgia. NEUROLOGIC: Denies headache, numbness, or weakness. PSYCHIATRIC: Denies anxiety or depression. All other systems reviewed are negative, except as documented in HPI. [facility] Past Medical History Medical History (Updated 05/31/21 @ 00:00 by Background Daemon) Preeclampsia Surgical History Surgical History History of section Hx of tonsillectomy Family History Family History Father Family history of heart disease in male family member before age 55 Hypertension Grandparent Family history of lung cancer Family history of type 1 diabetes mellitus Mother Hypertension Social History Social History Smoking status: Never smoker Alcohol intake: current Substance use: never Spiritual care concerns: No Comments At time of signature, agree with nursing past medical, surgical, social and family history. There is no relevant family history pertinent to the presenting complaint. Exam Narrative: GENERAL: This is a well-nourished, well-developed patient, patient is ill-appearing but in no distress. HEAD: normocephalic, atraumatic. EYES: PERRL. Sclera clear/white. Vision is grossly intact. EARS: External ears normal, fluid to right TM with erythema and bulging., TMs without perforation. Hearing grossly intact. NOSE: External nose normal with clear nasal drainage, erythema to nares. THROAT: Mucous membranes moist, erythema and swelling to pharynx. Tonsils 1+ bilaterally. No exudates. NECK: Neck supple, non-tender without lymphadenopathy, masses or thyromegaly. CARDIOVASCULAR: Regular rate and rhythm without murmurs, gallops, or rubs. RESPIRATORY: Clear to auscultation. Breath sounds equal bilaterally. No wheezes, rales, or rhonchi. SKIN: warm, Dry, intact with no suspicious lesions or rash, good texture and turgor. NEURO: awake, alert, and oriented to person, place and time. There were no obvious focal neurologic abnormalit
== END 2021-05-30 17:58 | disposition home or self-care (01) ==
PROVIDERS: Emergency Provider Nurse Practitioner Family; PCP Nurse Practitioner Family
DX: J06.9 Acute upper respiratory infection, unspecified (principal); H65.01 Acute serous otitis media, right ear; I10 Essential (primary) hypertension; I34.1 Nonrheumatic mitral (valve) prolapse
CPT/HCPCS: 87081; 87804; 87880; 99213; G0463

== ENCOUNTER 2022-01-27 18:25 | Emergency (ER) | payer OTHER, SELFPAY ==
[2022-01-27 18:36] VITALS: BP 148/90; PULSE 93; RESP 16; TEMP 37.1; O2SAT 100
--- NOTE | 2022-01-27 19:44 | ED.URI ---
HPI - URI/Sore Throat General Chief Complaint: Upper Respiratory Infection Stated Complaint: Sore Throat Time Seen by Provider: 01/27/22 19:43 Source: patient and RN notes reviewed Mode of arrival: ambulatory Limitations: no limitations History of Present Illness HPI Narrative: 32-year-old female presented for complaint of sore throat, sinus congestion worsening over the past 2 days. She endorses a history of strep infections, at least twice a year despite having tonsillectomy. She denies cough, shortness of breath, wheezing, nausea, vomiting, diarrhea. She endorses her son had influenza B 2 weeks ago. She also works as a nurse. She is taking [id number] medication without relief. MD elicited complaint: cough Related Data Home Medications Medication Instructions Recorded Confirmed cetirizine 10 mg tablet (Zyrtec) 10 mg PO DAILY PRN Allergy Symptoms 05/29/19 01/27/22 clonidine HCl 0.1 mg tablet 0.1 mg PO HS 05/30/21 01/27/22 Allergies Allergy/AdvReac Type Severity Reaction Status Date / Time latex Allergy Mild Rash Verified 01/27/22 18:39 citalopram Allergy Unknown Rash Verified 01/27/22 18:39 Penicillins Allergy Unknown Rash Verified 01/27/22 18:39 vancomycin Allergy Unknown Redness of Verified 01/27/22 18:39 Skin Review of Systems Review of Systems: Per [facility] Past Medical History Medical History (Updated 01/27/22 @ 20:12 by Honey Velarde APRN) Preeclampsia Surgical History Surgical History History of section Hx of tonsillectomy Family History Family History Father Family history of heart disease in male family member before age 55 Hypertension Grandparent Family history of lung cancer Family history of type 1 diabetes mellitus Mother Hypertension Social History Social History Smoking status: Never smoker Alcohol intake: current Substance use: never Spiritual care concerns: No Exam Narrative: GENERAL: Ill-appearing, nontoxic EYES: PERRLA, conjunctivae clear ENT: Mucous membranes moist. TMs pearly torre with dull light reflex bilaterally; no tragal tenderness. Oropharynx erythematous without lesions or exudate, tonsils absent no drooling, no hoarseness, no trismus, uvula midline. No tripod positioning, muffled voice, soft palate or pharyngeal wall bulging NECK: Supple. No lymphadenopathy CHEST: Clear to auscultation, breath sounds equal. HEART: Regular rate and rhythm. No murmur heard. SKIN: Warm, dry, no rash. Course Course Emergency Course: Patient is aware of diagnosis, understands and agrees to treatment plan. Anticipatory guidance given. Patient agrees to follow-up as directed and is aware of reasons to seek care at the emergency department. Portions of this record may have been created with voice recognition software Level of Care: Express Care Visit Vital Signs Vital signs: Vital Signs Temperature 98.7 F 01/27/22 18:36 Pulse Rate 93 01/27/22 18:36 Respiratory Rate 16 01/27/22 18:36 Blood Pressure 148/90 H 01/27/22 18:36 Pulse Oximetry 100 01/27/22 18:36 Oxygen Delivery Room Air 01/27/22 18:36 Temperature 98.7 F 01/27/22 18:36 Pulse Rate 93 01/27/22 18:36 Respiratory Rate 16 01/27/22 18:36 Blood Pressure 148/90 H 01/27/22 18:36 Pulse Oximetry 100 01/27/22 18:36 Oxygen Delivery Room Air 01/27/22 18:36 reviewed MDM - URI/Sore Throat MDM Narrative Medical decision making narrative: Due to lack of resources, unable to test for rapid strep at this time. Patient verbalizes understanding. influenza negative. Will treat empirically for strep infection based on PE and CC. Advised supportive measures and signs and symptoms to go to the ER. Patient is appropriate for outpatient treatment and follow-up. Differential Di
== END 2022-01-27 20:12 | disposition home or self-care (01) ==
PROVIDERS: Emergency Provider Nurse Practitioner Family
DX: J02.9 Acute pharyngitis, unspecified (principal)
CPT/HCPCS: 87804; 99213; G0463

== ENCOUNTER 2022-03-25 14:08 | Emergency (ER) | payer OTHER, SELFPAY ==
[2022-03-25 14:12] VITALS: BP 135/90; PULSE 137; RESP 16; TEMP 37.6; O2SAT 99
--- NOTE | 2022-03-25 14:46 | ED.URI ---
HPI - URI/Sore Throat General Chief Complaint: Upper Respiratory Infection Stated Complaint: fever and sore throat Source: patient and RN notes reviewed History of Present Illness HPI Narrative: 32 yo F presents to urgent care with complaints of fevers and sore throat. Pt states her symptoms started yesterday and reports a fever as high as 104 F. Pt states prior to yesterday, she had a lack of energy but denies any other symptoms. Pt reports left sided ear pain and states she vomited x 1 this morning. Pt denies any dysuria, abdominal pain, chest pain, SOB, abnormal congestion, or diarrhea. Pt has not been eating b/c she states it hurts too bad to swallow. Pt states she is drinking some fluids but not a lot today b/c she's been sleeping. 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 Pt also states the last 3 times she has been tested for strep, the rapid always comes back negative and two days later, her test is positive in the lab. Related Data Allergies Allergy/AdvReac Type Severity Reaction Status Date / Time latex Allergy Mild Rash Verified 03/25/22 14:22 citalopram Allergy Unknown Rash Verified 03/25/22 14:22 Penicillins Allergy Unknown Rash Verified 03/25/22 14:22 vancomycin Allergy Unknown Redness of Verified 03/25/22 14:22 Skin Review of Systems Review of Systems: CONSTITUTIONAL: Reports fevers EYES: Denies visual changes, redness, or discharge. ENT: Reports left ear pain and sore throat CARDIOVASCULAR: Denies chest pain, palpitations, or edema. RESPIRATORY: Denies cough or dyspnea. GASTROINTESTINAL: Reports vomiting x1 this morning. Denies any abdominal pain or diarrhea. GENITOURINARY: Denies dysuria or hematuria. SKIN: Denies rash or itching. MUSCULOSKELETAL: Denies back pain, joint pain, or myalgia. NEUROLOGIC: Denies headache, numbness, or weakness. [facility] Past Medical History Medical History (Updated 03/25/22 @ 14:57 by Ange Carter APRN) Preeclampsia Surgical History Surgical History History of section Hx of tonsillectomy Family History Family History Father Family history of heart disease in male family member before age 55 Hypertension Grandparent Family history of lung cancer Family history of type 1 diabetes mellitus Mother Hypertension Social History Social History Smoking status: Never smoker Alcohol intake: current Substance use: never Spiritual care concerns: No Comments At the time of my signature, I reviewed and agree with the nursing past medical, surgical, social, and family history. There is no relevant family history pertinent to the patient complaint. Exam Narrative: GENERAL: This is a well-nourished, well-developed patient. HEAD: normocephalic, atraumatic. EYES: PERRL. Sclera clear/white. Vision is grossly intact. EARS: External ears normal, auditory canals clear and without drainage. Left TM erythemic. Right TM normal without perforation. Hearing grossly intact. NOSE: External nose normal with no obvious nasal discharge, nares without redness, no rhinorrhea. THROAT: Mucous membranes dry, posterior pharynx erythemic with white exudate. NECK: Tender lymphadenopathy. CARDIOVASCULAR: Tachycardic RESPIRATORY: Clear to auscultation. Breath sounds equal bilaterally. No wheezes, rales, or rhonchi. GASTROINTESTINAL: Abdomen soft, non-tender, nondistended. Bowel sounds are active. No hepato-splenomegaly, or palpable masses. No guarding. SKIN: warm, sweaty, intact with no suspicious lesions or rash, good texture and turgor. NEURO: awake, alert, and oriented to person, place and time. There were no obvious focal neurologic abnormalities. EXTREMITIES: No clubbing, cyanosis, or edema. No joint tenderness, effusion, or edema noted. No calf tenderness. Negative Homans sign bilaterally. BACK:
[2022-03-25 14:51] VITALS: TEMP 38
[2022-03-25] MEDS: ACETAMINOPHEN 500 MG TABLET 1000 MG PO (14:51)
== END 2022-03-25 15:00 | disposition home or self-care (01) ==
PROVIDERS: Emergency Provider Nurse Practitioner Family; PCP Nurse Practitioner Family
DX: J02.9 Acute pharyngitis, unspecified (principal)
CPT/HCPCS: 87081; 87804; 87880; 99213; A9270; G0463

== ENCOUNTER 2022-11-16 12:58 | Emergency (ER) | payer BC, OTHER, SELFPAY ==
--- NOTE | ~2022-11-16 | XR_ITS ---
EXAMINATION: XR chest 2V 11/16/2022 13:37 INDICATION: Cough and congestion for 6 weeks PROCEDURE: 2 view chest COMPARISON: No prior studies for comparison. FINDINGS: The lungs are clear. The cardiomediastinal silhouette is within normal limits. There are no pleural effusions. There is no pneumothorax suspected. IMPRESSION: 1: NO ACUTE CARDIOPULMONARY DISEASE. Reviewed, dictated and finalized at location L.
[2022-11-16 13:06] VITALS: BP 129/91; PULSE 89; RESP 16; TEMP 36.8; O2SAT 100
--- NOTE | 2022-11-16 13:53 | ED.GENADULT ---
HPI - General Adult General Chief complaint: Upper Respiratory Infection Stated complaint: Cough/Congestion Source: patient Mode of arrival: ambulatory Limitations: no limitations History of Present Illness HPI narrative: Patient presents for evaluation of cough for the last six weeks. She states cough is productive of white/yellow sputum. She has some sinus congestion, thick nasal drainage, exertional dyspnea and wheezing. She had some fevers around the time of symptom onset but those have resolved. She reports sore throat but denies any chills, nausea, vomiting, or diarrhea. She feels an increase in pressure in her left ear with muffled hearing. She has tried several OTC agents without considerable improvement in her symptoms thereafter. She does not smoke. Related Data Allergies Allergy/AdvReac Type Severity Reaction Status Date / Time latex Allergy Mild Rash Verified 03/25/22 14:22 citalopram Allergy Unknown Rash Verified 03/25/22 14:22 Penicillins Allergy Unknown Rash Verified 03/25/22 14:22 vancomycin Allergy Unknown Redness of Verified 03/25/22 14:22 Skin cefdinir Allergy Vomiting Uncoded 11/16/22 14:01 Review of Systems Review of Systems: CONSTITUTIONAL: Reports recent fever, none currently. Denies chills.. EYES: Denies visual changes, redness, or discharge. ENT: Reports sinus congestion, drainage, sore throat, bilateral otalgia with muffled hearing CARDIOVASCULAR: Denies chest pain, palpitations, or edema. RESPIRATORY: Reports productive cough of white/yellow sputum with SOB GASTROINTESTINAL: Denies abdominal pain, nausea, vomiting, or diarrhea. GENITOURINARY: Denies dysuria or hematuria. SKIN: Denies rash or itching. MUSCULOSKELETAL: Reports generalized body aches. NEUROLOGIC: Denies headache, numbness, dizziness, or weakness. PSYCHIATRIC: Denies anxiety or depression. [facility] Past Medical History Medical History Preeclampsia Surgical History Surgical History History of section Hx of tonsillectomy Family History Family History Father Family history of heart disease in male family member before age 55 Hypertension Grandparent Family history of lung cancer Family history of type 1 diabetes mellitus Mother Hypertension Social History Social History Smoking status: Never smoker Alcohol intake: current Substance use: never Spiritual care concerns: No Exam Narrative: GENERAL: Well-appearing, well-nourished, and in no acute distress. HEAD: Normocephalic, atraumatic. EYES: PERRLA and EOMI. ENT: Nares clear, no rhinorrhea or epistaxis. Mucous membranes moist. Oropharynx without tonsillar hypertrophy exudate or other lesions. Left tympanic membrane is erythematous and bulging. NECK: Supple. No adenopathy or masses. No carotid bruits or JVD CHEST:Wheezing noted with inspiration and expiration in bilateral lung jones posteriorly. HEART: Regular rate and rhythm. No murmur heard. Normal peripheral pulses. ABDOMEN: Soft, nontender, nondistended, normal active bowel sounds. EXTREMITIES: Normal range of motion. No edema. SKIN: Warm, dry, no rash. NEURO: No focal deficits. Alert and oriented x3. PSYCH: Normal mood and affect. Course Course Emergency Course: This is a 32-year-old female who presented for evaluation of sick symptoms. Influenza and COVID negative. CXR negative. She does have wheezing on exam and evidence of otitis media. Will tx with prednisone and albuterol. She has an allergy to PCN. We initially agreed to be dc'd with cefdinir. She then stated she had vomiting with that medication but has taken and tolerated azithromycin well in the past. She also responded favorably to azithromycin clinically in the past. Fol
== END 2022-11-16 13:56 | disposition home or self-care (01) ==
PROVIDERS: Emergency Provider Nurse Practitioner
DX: R06.2 Wheezing (principal); H66.92 Otitis media, unspecified, left ear; Z20.822 Contact with and (suspected) exposure to COVID-19
CPT/HCPCS: 71046; 87081; 87426; 87804; 87880; 99213; C9803; G0463